=== PATIENT | male | born 1945 | race Caucasian/White ===

== ENCOUNTER → 2018-03-02 08:19 | Outpatient (CLI) | payer MEDICARE, OTHER, SELFPAY ==
--- NOTE | 2018-03-02 | DI.MRI.S_ITS ---
PROCEDURE: MR LUMBAR SPINE WO CON INDICATIONS: LUMBAR RADICULOPATHY TECHNIQUE: Noncontrast sagittal T1 spin echo and T2 fast echo, sagittal STIR, axial T1 and T2 fast spin echo through the lumbar spine. In cases with scoliosis, additional coronal T2 fast spin echo may be performed. COMPARISON: [facility], , L-SPINE WITHOUT CONTRAST, 05/01/2015, 10:04[facility], CR, SPINE LUMB 2 OR 3VW, 04/24/2015, 16:00. FINDINGS: Image quality: Excellent. Alignment and Curvature: 5 lumbar type vertebral bodies are present by plain film. There is moderate leftward curvature of the lower lumbar spine. There is loss of normal lumbar lordosis. There is mild, grade 1 retrolisthesis of L2 on L3, L3 on L4, and L4 on L5. Bone Marrow: Marrow is of normal overall signal. No acute vertebral body compression fractures. Mild reactive signal within the endplates adjacent to the L2-L3, L3-L4, and L4-L5 intervertebral discs. Spinal Cord: Conus medullaris terminates at the mid L2 level. Visualized cord demonstrates normal signal and size. Paraspinous Soft Tissues: No paravertebral masses. L1-L2: Congenital canal stenosis. Mild bilateral facet and ligamentum flavum hypertrophy. No canal stenosis. Mild bilateral foraminal stenosis. No change. L2-L3: Congenital canal stenosis. Mild disc height loss and desiccation. Mild diffuse disc bulge with superimposed broad-based right far lateral protrusion. Mild bilateral facet and ligamentum flavum hypertrophy. Mild epidural lipomatosis. Moderate canal stenosis. Mild right greater than left foraminal stenosis. No change. L3-L4: Congenital canal stenosis. Mild disc height loss. Moderate disc desiccation. Moderate diffuse disc bulge with superimposed right far lateral broad-based protrusion. Bilateral facet hypertrophy. Moderate canal stenosis. Moderate bilateral foraminal stenosis. No change. L4-L5: Congenital canal stenosis. Mild disc height loss. Moderate disc desiccation. Moderate diffuse disc bulge. Bilateral facet hypertrophy. Moderate canal stenosis. Severe right and moderate left foraminal stenosis. Flattening deformity of the right L4 nerve root within the neural foramen, new since the prior examination. L5-S1: Congenital canal stenosis. Mild disc height loss and desiccation. Mild diffuse disc bulge with superimposed left paracentral protrusion. Moderate bilateral facet hypertrophy. Mild canal stenosis. Moderate left and mild right foraminal stenosis. No change. IMPRESSION: 1. Diffuse congenital canal stenosis, with superimposed disc and facet disease, as well as ligamentum flavum hypertrophy and epidural lipomatosis. 2. Multilevel moderate canal stenoses at L2-L5. 3. Multilevel foraminal stenoses, worst at L4-L5 on the right, where there is new right L4 nerve root flattening; recommend correlation with clinical symptoms to ascertain relevance of this finding. Dictated by: Maddy Peraza M.D. on 03/02/2018 at 9:53 Approved by: Maddy Peraza M.D. on 03/02/2018 at 9:59
== END ==
PROVIDERS: Family Provider Physician Assistant Medical; PCP Physician Assistant Medical; Visit Provider Physician Assistant
DX: M51.16 Intervertebral disc disorders with radiculopathy, lumbar region (principal); M51.17 Intervertebral disc disorders with radiculopathy, lumbosacral region; M48.061 Spinal stenosis, lumbar region without neurogenic claudication; M48.07 Spinal stenosis, lumbosacral region; E88.2 Lipomatosis, not elsewhere classified
CPT/HCPCS: 72148

== ENCOUNTER 2018-11-20 13:37 | Emergency (ER) | payer OTHER, SELFPAY ==
[2018-11-20 13:48] VITALS: BP 197/79; PULSE 51; RESP 18; TEMP 36.2; O2SAT 96; BMI 32.3
--- NOTE | 2018-11-20 14:14 | DI.CT.S_ITS ---
PROCEDURE: CT HEAD/BRAIN WO CON INDICATIONS: fall TECHNIQUE: Noncontrast 4.5 mm thick angled axial sections acquired from the foramen magnum to the vertex, with coronal and sagittal reformats. For radiation dose reduction, the following was used: automated exposure control, adjustment of mA and/or kV according to patient size. COMPARISON: None. FINDINGS: Image quality: Excellent. CSF spaces: Basal cisterns are patent. No extra-axial fluid collections. The ventricles are symmetric in size and shape. Brain: No intracranial bleeds or masses. There is cerebral volume loss for age, with resultant ventricular and sulcal prominence. There are periventricular and deep white matter chronic small vessel ischemic changes. There is intracranial internal carotid artery and vertebral artery atherosclerosis. Skull and face: Calvarium and visualized facial bones appear intact, without suspicious lesions. Right periorbital facial soft tissue hematoma. Sinuses: Visualized sinuses and mastoids are clear. IMPRESSION: No acute intracranial disease process. Dictated by: Teresita Interiano MD, PhD on 11/20/2018 at 15:05 Approved by: Teresita Interiano MD, PhD on 11/20/2018 at 15:07
--- NOTE | 2018-11-20 14:15 | DI.RAD.S_ITS ---
PROCEDURE: XR HAND RT MIN 3V INDICATIONS: hand injury TECHNIQUE: 3 views of the hand(s) acquired. COMPARISON: None. FINDINGS: Bones: No fractures or dislocations. Carpal bones are normally aligned. No suspicious bony lesions. Soft tissues: No suspicious soft tissue calcifications. Atherosclerotic calcifications. IMPRESSION: No fracture. No osseous lesion. If symptoms and/or clinical suspicion for pathology persists, further assessment with repeat radiographs (7-10 days) or advanced imaging (e.g. CT, MRI or bone scan) may be helpful. Dictated by: Teresita Interiano MD, PhD on 11/20/2018 at 15:31 Approved by: Teresita Interiano MD, PhD on 11/20/2018 at 15:32
--- NOTE | 2018-11-20 14:49 | DI.CT.S_ITS ---
PROCEDURE: CT CERVICAL SPINE WO CON INDICATIONS: fall TECHNIQUE: Noncontrast 3 mm thick sections acquired from the skull base to the T4 level. Sagittal and coronal reformats were then constructed. For radiation dose reduction, the following was used: automated exposure control, adjustment of mA and/or kV according to patient size. COMPARISON: None. FINDINGS: Image quality: Excellent. Bones: No fractures or dislocations. Visualized superior ribs are intact. Spine degenerative disc disease and facet arthropathy. Soft tissues: Prevertebral soft tissues are normal in thickness. No paravertebral hematomas. No apical pneumothoraces. 4 mm calcified right upper lobe granuloma IMPRESSION: No fracture. No acute osseous lesion. If symptoms and/or clinical suspicion for pathology persists, evaluation with MRI may be helpful for further assessment. Dictated by: Teresita Interiano MD, PhD on 11/20/2018 at 15:08 Approved by: Teresita Interiano MD, PhD on 11/20/2018 at 15:14
[2018-11-20 15:46] VITALS: BP 190/64; PULSE 63; RESP 16; O2SAT 100
[2018-11-20 16:30] VITALS: BP 155/50; PULSE 43; RESP 16; O2SAT 99
[2018-11-20 17:00] VITALS: BP 156/50; PULSE 41; RESP 15; O2SAT 98
[2018-11-20 17:17] VITALS: BP 156/50; PULSE 43; RESP 14; O2SAT 96
--- NOTE | 2018-11-20 19:41 | ED.HEATRA ---
HPI - Head Injury <SHYAM Barrera - Last Filed: 11/20/18 20:55> General Chief complaint: Head Injury Stated complaint: fell at work Time Seen by Provider: 11/20/18 15:06 Source: patient Mode of arrival: ambulatory Limitations: no limitations History of Present Illness HPI Narrative: The patient is a 73-year-old male marijuana smoker who presents after a ground level trip and fall. He states he does not take blood thinners, but is on a aspirin a day. He also is diabetic. He states he tripped at work, landing with his face on the ground. He complains of bruising and ecchymosis around his right eye. He denies any loss of consciousness.. He states his tetanus was done in the past 3 years. He denies any numbness, tingling, weakness, dizziness, lightheadedness nausea vomiting. He is adamant that he tripped and fell, did not get lightheaded and fall. Related Data Home Medications Medication Instructions Recorded Confirmed amlodipine 5 mg PO DAILY 11/20/18 11/20/18 chlorthalidone 25 mg PO DAILY 11/20/18 11/20/18 insulin aspart U-100 [Novolog 1 dose SUBCUT TIDWM 11/20/18 11/20/18 Flexpen U-100 Insulin] insulin glargine [Basaglar KwikPen 50 units SUBCUT BEDTIME 11/20/18 11/20/18 U-100 Insulin] ipratropium bromide 2 spray INTRANASAL BID-QID 11/20/18 11/20/18 losartan 50 mg PO BID 11/20/18 11/20/18 metoprolol tartrate 50 mg PO BID 11/20/18 11/20/18 spironolactone 25 mg PO DAILY 11/20/18 11/20/18 Allergies Allergy/AdvReac Type Severity Reaction Status Date / Time Penicillins [PENICILLINS] Allergy Intermediate HIVES/RASH Unverified 07/13/17 12:35 Review of Systems <SYHAM Barrera - Last Filed: 11/20/18 20:55> Review of Systems GENERAL: Denies chills, fatigue, malaise, fever, sweats. HEENT: Denies sinus pain, ear pain, sore throat, difficulty swallowing, dizziness. RESPIRATORY: Denies dyspnea, cough, wheezing, hemoptysis, sputum. CARDIOVASCULAR: Denies chest pain, palpitations, orthopnea, edema, GASTROINTESTINAL: Denies nausea, vomiting, abdominal pain, diarrhea, constipation, melena. : Denies dysuria, frequency, incontinence, hematuria, urinary retention. MUSCULOSKELETAL: See HPI SKIN: See HPI NEUROLOGIC: Denies weakness, headache, numbness, change in speech, confusion, seizures, incoordination. PSYCHIATRIC: No concerning psychosocial issues. 12 point review of systems is negative except for those stated above PFSH <SHYAM Barrera - Last Filed: 11/20/18 20:55> Surgical History Status post knee surgery Status post knee surgery Status post laminectomy Social History Smoking Status: Never smoker Social History Smoking Status: Never smoker Exam <SHYAM Barrera - Last Filed: 11/20/18 20:55> Narrative Exam Narrative: GENERAL: This is a well-nourished, well-developed patient, no acute distress HEAD: Atraumatic. Normocephalic. No temporal or scalp tenderness. No pain to palpation of facial bones. EYES: Pupils equal round and reactive. Extraocular motions intact. No scleral icterus. No injection or drainage.. Periorbital ecchymosis is noted on skin exam. ENT: Nose without bleeding, purulent drainage or septal hematoma. Throat without erythema, tonsillar hypertrophy or exudate. Uvula midline. Airway patent. NECK: Trachea midline. No JVD or lymphadenopathy. Supple, nontender, no meningeal signs. CARDIOVASCULAR: Regular rate and rhythm RESPIRATORY: Clear to auscultation. Breath sounds equal bilaterally. No wheezes, rales, or rhonchi. No cough. No increased respiratory effort. No accessory muscle use. GASTROINTESTINAL: Abdomen soft, non-tender, nondistended. No hepato-splenomegaly, or palpable masses. No guarding. EXTREMITIES: Diffuse pain to palpation of right hand. Negative right wrist pain to palpation. Full range of motion noted right wrist. No snuffbox tenderness. Positive radial pulse right hand. Capillary refill less than 2 seconds. BACK: Diffuse pain to C-spine palpation. No pain to spinal palpation of T and L-spine. NEURO: AOx3. Strength is equal upper and lower extremities bilaterally. SKIN: Right eye periorbital ecchymosis. Small abrasion noted lateral to her right eye. Abrasion noted on lateral aspect of right hand. Initial Vital Signs Initial Vital Signs: Vital Signs Temperature 97.1 F L 11/20/18 13:48 Pulse Rate 51 L 11/20/18 13:48 Respiratory Rate 18 11/20/18 13:48 Blood Pressure 197/79 H 11/20/18 13:48 Pulse Oximetry 96 11/20/18 13:48 <Cathy Donaldson DO - Last Filed: 11/21/18 07:16> Initial Vital Signs Initial Vital Signs: Vital Signs Temperature 97.1 F L 11/20/18 13:48 Pulse Rate 51 L 11/20/18 13:48 Respiratory Rate 18 11/20/18 13:48 Blood Pressure 197/79 H 11/20/18 13:48 Pulse Oximetry 96 11/20/18 13:48 Scores <SHYAM Barrera - Last Filed: 11/20/18 20:55> GCS [place] coma scale eye opening: Spontaneous Mini coma scale verbal response: Orientated Mini coma scale motor response: Obey commands Mini coma scale total score: 15 Course <SHYAM Barrera - Last Filed: 11/20/18 20:55> Orders Ordered: ED Orders 11/20/18 14:14 CT head/brain wo con Stat 11/20/18 14:15 XR hand RT min 3V Stat 11/20/18 14:49 CT cervical spine wo con Stat Vital Signs - 8 hr 11/20/18 13:48 11/20/18 15:46 11/20/18 16:30 Temperature 97.1 F L Pulse Rate 51 L 63 43 L Respiratory Rate 18 16 16 Blood Pressure 197/79 H Blood Pressure [Left Arm] 190/64 H 155/50 H Pulse Oximetry 96 100 99 11/20/18 17:00 11/20/18 17:17 Temperature Pulse Rate 41 L 43 L Respiratory Rate 15 14 Blood Pressure 156/50 H Blood Pressure [Left Arm] 156/50 H Pulse Oximetry 98 96 <DO Sumi Canela Last Filed: 11/21/18 07:16> Orders Ordered: ED Orders 11/20/18 14:14 CT head/brain wo con Stat 11/20/18 14:15 XR hand RT min 3V Stat 11/20/18 14:49 CT cervical spine wo con Stat Vital Signs - 8 hr 11/20/18 13:48 11/20/18 15:46 11/20/18 16:30 Temperature 97.1 F L Pulse Rate 51 L 63 43 L Respiratory Rate 18 16 16 Blood Pressure 197/79 H Blood Pressure [Left Arm] 190/64 H 155/50 H Pulse Oximetry 96 100 99 11/20/18 17:00 11/20/18 17:17 Temperature Pulse Rate 41 L 43 L Respiratory Rate 15 14 Blood Pressure 156/50 H Blood Pressure [Left Arm] 156/50 H Pulse Oximetry 98 96 MDM - Head Injury <SABRINA Barrera- - Last Filed: 11/20/18 20:55> Imaging Data C-spine CT: Radiologist's impression: [address] [address] [address] Scan Report Signed Patient: Homer Howell [facility]R#: [id number] : 8Acct:[id number] Age/Sex: 73 / MDate of Service: 11/20/18 Loc: ED Accession Number: [id number] Procedure: CT cervical spine wo con Ordering Provider: Cathy Donaldson D.O. PROCEDURE: CT CERVICAL SPINE WO CON INDICATIONS: fall TECHNIQUE: Noncontrast 3 mm thick sections acquired from the skull base to the T4 level. Sagittal and coronal reformats were then constructed. For radiation dose reduction, the following was used: automated exposure control, adjustment of mA and/or kV according to patient size. COMPARISON: None. FINDINGS: Image quality: Excellent. Bones: No fractures or dislocations. Visualized superior ribs are intact. Spine degenerative disc disease and facet arthropathy. Soft tissues: Prevertebral soft tissues are normal in thickness. No paravertebral hematomas. No apical pneumothoraces. 4 mm calcified right upper lobe granuloma IMPRESSION: No fracture. No acute osseous lesion. If symptoms and/or clinical suspicion for pathology persists, evaluation with MRI may be helpful for further assessment. Dictated by: Teresita Interiano MD, PhD on 11/20/2018 at 15:08 Approved by: Teresita Interiano MD, PhD on 11/20/2018 at 15:14 Hand x-ray: Radiologist's impression: Homer Howell 73 M [address] [address] XRay Report Signed Patient: Homer Howell AMR#: [id number] : 8Acct:[id number] Age/Sex: 73 / MDate of Service: 11/20/18 Loc: ED Accession Number: [id number] Procedure: XR hand RT min 3V Ordering Provider: Cathy oDnaldson D.O. PROCEDURE: XR HAND RT MIN 3V INDICATIONS: hand injury TECHNIQUE: 3 views of the hand(s) acquired. COMPARISON: None. FINDINGS: Bones: No fractures or dislocations. Carpal bones are normally aligned. No suspicious bony lesions. Soft tissues: No suspicious soft tissue calcifications. Atherosclerotic calcifications. IMPRESSION: No fracture. No osseous lesion. If symptoms and/or clinical suspicion for pathology persists, further assessment with repeat radiographs (7-10 days) or advanced imaging (e.g. CT, MRI or bone scan) may be helpful. Dictated by: Teresita Interiano MD, PhD on 11/20/2018 at 15:31 Approved by: Teresita Interiano MD, PhD on 11/20/2018 at 15:[address]: Radiologist's impression: Homer Howell 73 M [address] [address] [address] Scan Report Signed Patient: Homer Howell [facility]R#: [id number] [id number] Age/Sex: 73 / MDate of Service: 11/20/18 Loc: ED Accession Number: [id number] Procedure: CT head/brain wo con Ordering Provider: Cathy Donaldson D.O. PROCEDURE: CT HEAD/BRAIN WO CON INDICATIONS: fall TECHNIQUE: Noncontrast 4.5 mm thick angled axial sections acquired from the foramen magnum to the vertex, with coronal and sagittal reformats. For radiation dose reduction, the following was used: automated exposure control, adjustment of mA and/or kV according to patient size. COMPARISON: None. FINDINGS: Image quality: Excellent. CSF spaces: Basal cisterns are patent. No extra-axial fluid collections. The ventricles are symmetric in size and shape. Brain: No intracranial bleeds or masses. There is cerebral volume loss for age, with resultant ventricular and sulcal prominence. There are periventricular and deep white matter chronic small vessel ischemic changes. There is intracranial internal carotid artery and vertebral artery atherosclerosis. Skull and face: Calvarium and visualized facial bones appear intact, without suspicious lesions. Right periorbital facial soft tissue hematoma. Sinuses: Visualized sinuses and mastoids are clear. IMPRESSION: No acute intracranial disease process. Dictated by: Teresita Interiano MD, PhD on 11/20/2018 at 15:05 Approved by: Teresita Interiano MD, PhD on 11/20/2018 at 15:07 [facility] Narrative Medical decision making narrative: The patient is a 73-year-old male who presents after ground level fall. He is not on blood thinners. The patient was placed in a C-collar by nursing and CTs of his head and neck were obtained. There were negative. His hand x-ray is also has no acute findings. His tetanus is up-to-date. His visual acuity is stable. He denies any lightheadedness, dizziness, visual deficit or any acute concerns. He has no symptoms of a concussion. He requests to go home. I discussed at length follow up with his PCP. Encourage come back to the ER for any acute concerns such as incontinence of bowel, incontinence of bladder saddle anesthesia. Discussed coming back to the ER for any confusion, chest pain, shortness of breath etc. Patient has no questions or concerns upon discharge and states understand give all follow-up and return precautions. Discharge Plan Departure Patient Disposition: Home Clinical Impression: Fall from ground level, Abrasion Periorbital ecchymosis of right eye Qualifiers: Encounter type: initial encounter Qualified Code(s): S00.11XA - Contusion of right eyelid and periocular area, initial encounter Neck strain Qualifiers: Encounter type: initial encounter Qualified Code(s): S16.1XXA - Strain of muscle, fascia and tendon at neck level, initial encounter Discharge Date/Time: 11/20/18 17:18 Interventions: ED Discharge Assessment Last Done: 11/20/18 17:17 Instructions: DI for Concussion, How to Prevent Falls, DI for Neck Sprain, DI for Abrasion, DI for Neck Pain, DI for Hand Pain Activity Restrictions/Additional Instructions: Today we did imaging of her hand, head and neck. Everything came back normal. You will have a black eye from her fall and have an overlying abrasion. Please monitor for signs and symptoms of infection. This includes redness pus and discharge. Please come back to the emergency department for any acute concerns such as confusion, with new onset incontinence or numbness in your groin, no visual difficulties. Please follow up with primary care provider. Prescriptions: No Action losartan 50 mg tablet 50 mg PO BID RF: 0 chlorthalidone 25 mg tablet 25 mg PO DAILY RF: 0 amlodipine 5 mg tablet 5 mg PO DAILY RF: 0 spironolactone 25 mg tablet 25 mg PO DAILY RF: 0 metoprolol tartrate 50 mg tablet 50 mg PO BID RF: 0 ipratropium bromide 0.03 % spray,non-aerosol 2 spray intranasal BID-QID RF: 0 Novolog Flexpen U-100 Insulin 100 unit/mL (3 mL) insulin pen 1 dose subcut TIDWM RF: 0 Basaglar KwikPen U-100 Insulin 100 unit/mL (3 mL) insulin pen 50 units subcut BEDTIME RF: 0 Referrals: Adrienne Garcia PA-C [Primary Care Provider] - <Cathy Donaldson DO - Last Filed: 11/21/18 07:16> Cosign ED Attending Nikkiature Attestation: I was immediately available in the department for consultation. Documentation has been reviewed. I agree with assessment and plan.
--- NOTE | 2018-11-20 20:55 | ED_ITS ---
HPI - Head Injury <SHYAM Barrera - Last Filed: 11/20/18 20:55> General Chief complaint: Head Injury Stated complaint: fell at work Time Seen by Provider: 11/20/18 15:06 Source: patient Mode of arrival: ambulatory Limitations: no limitations History of Present Illness HPI Narrative: The patient is a 73-year-old male marijuana smoker who presents after a ground level trip and fall. He states he does not take blood thinners, but is on a aspirin a day. He also is diabetic. He states he tripped at work, landing with his face on the ground. He complains of bruising and ecchymosis around his right eye. He denies any loss of consciousness.. He states his tetanus was done in the past 3 years. He denies any numbness, tingling, weakness, dizziness, lightheadedness nausea vomiting. He is adamant that he tripped and fell, did not get lightheaded and fall. Related Data Home Medications Medication Instructions Recorded Confirmed amlodipine 5 mg PO DAILY 11/20/18 11/20/18 chlorthalidone 25 mg PO DAILY 11/20/18 11/20/18 insulin aspart U-100 [Novolog 1 dose SUBCUT TIDWM 11/20/18 11/20/18 Flexpen U-100 Insulin] insulin glargine [Basaglar KwikPen 50 units SUBCUT BEDTIME 11/20/18 11/20/18 U-100 Insulin] ipratropium bromide 2 spray INTRANASAL BID-QID 11/20/18 11/20/18 losartan 50 mg PO BID 11/20/18 11/20/18 metoprolol tartrate 50 mg PO BID 11/20/18 11/20/18 spironolactone 25 mg PO DAILY 11/20/18 11/20/18 Allergies Allergy/AdvReac Type Severity Reaction Status Date / Time Penicillins [PENICILLINS] Allergy Intermediate HIVES/RASH Unverified 07/13/17 12:35 Review of Systems <SHYAM Barrera - Last Filed: 11/20/18 20:55> Review of Systems GENERAL: Denies chills, fatigue, malaise, fever, sweats. HEENT: Denies sinus pain, ear pain, sore throat, difficulty swallowing, dizziness. RESPIRATORY: Denies dyspnea, cough, wheezing, hemoptysis, sputum. CARDIOVASCULAR: Denies chest pain, palpitations, orthopnea, edema, GASTROINTESTINAL: Denies nausea, vomiting, abdominal pain, diarrhea, constipation, melena. : Denies dysuria, frequency, incontinence, hematuria, urinary retention. MUSCULOSKELETAL: See HPI SKIN: See HPI NEUROLOGIC: Denies weakness, headache, numbness, change in speech, confusion, seizures, incoordination. PSYCHIATRIC: No concerning psychosocial issues. 12 point review of systems is negative except for those stated above PFSH <SHYAM Barrera - Last Filed: 11/20/18 20:55> Surgical History Status post knee surgery Status post knee surgery Status post laminectomy Social History Smoking Status: Never smoker Social History Smoking Status: Never smoker Exam <SHYAM Barrera - Last Filed: 11/20/18 20:55> Narrative Exam Narrative: GENERAL: This is a well-nourished, well-developed patient, no acute distress HEAD: Atraumatic. Normocephalic. No temporal or scalp tenderness. No pain to palpation of facial bones. EYES: Pupils equal round and reactive. Extraocular motions intact. No scleral icterus. No injection or drainage.. Periorbital ecchymosis is noted on skin exam. ENT: Nose without bleeding, purulent drainage or septal hematoma. Throat without erythema, tonsillar hypertrophy or exudate. Uvula midline. Airway patent. NECK: Trachea midline. No JVD or lymphadenopathy. Supple, nontender, no meningeal signs. CARDIOVASCULAR: Regular rate and rhythm RESPIRATORY: Clear to auscultation. Breath sounds equal bilaterally. No wheezes, rales, or rhonchi. No cough. No increased respiratory effort. No accessory muscle use. GASTROINTESTINAL: Abdomen soft, non-tender, nondistended. No hepato- splenomegaly, or palpable masses. No guarding. EXTREMITIES: Diffuse pain to palpation of right hand. Negative right wrist pain to palpation. Full range of motion noted right wrist. No snuffbox tenderness. Positive radial pulse right hand. Capillary refill less than 2 seconds. BACK: Diffuse pain to C-spine palpation. No pain to spinal palpation of T and L-spine. NEURO: AOx3. Strength is equal upper and lower extremities bilaterally. SKIN: Right eye periorbital ecchymosis. Small abrasion noted lateral to her right eye. Abrasion noted on lateral aspect of right hand. Initial Vital Signs Initial Vital Signs: Vital Signs Temperature 97.1 F L 11/20/18 13:48 Pulse Rate 51 L 11/20/18 13:48 Respiratory Rate 18 11/20/18 13:48 Blood Pressure 197/79 H 11/20/18 13:48 Pulse Oximetry 96 11/20/18 13:48 <Cathy Donaldson DO - Last Filed: 11/21/18 07:16> Initial Vital Signs Initial Vital Signs: Vital Signs Temperature 97.1 F L 11/20/18 13:48 Pulse Rate 51 L 11/20/18 13:48 Respiratory Rate 18 11/20/18 13:48 Blood Pressure 197/79 H 11/20/18 13:48 Pulse Oximetry 96 11/20/18 13:48 Scores <SHYAM Barrera - Last Filed: 11/20/18 20:55> GCS Mini coma scale eye opening: Spontaneous [place] coma scale verbal response: Orientated Mini coma scale motor response: Obey commands [place] coma scale total score: 15 Course <SHYAM Barrera - Last Filed: 11/20/18 20:55> Orders Ordered: ED Orders 11/20/18 14:14 CT head/brain wo con Stat 11/20/18 14:15 XR hand RT min 3V Stat 11/20/18 14:49 CT cervical spine wo con Stat Vital Signs - 8 hr 11/20/18 13:48 11/20/18 15:46 11/20/18 16:30 Temperature 97.1 F L Pulse Rate 51 L 63 43 L Respiratory Rate 18 16 16 Blood Pressure 197/79 H Blood Pressure [Left Arm] 190/64 H 155/50 H Pulse Oximetry 96 100 99 11/20/18 17:00 11/20/18 17:17 Temperature Pulse Rate 41 L 43 L Respiratory Rate 15 14 Blood Pressure 156/50 H Blood Pressure [Left Arm] 156/50 H Pulse Oximetry 98 96 <DO Sumi Canela Last Filed: 11/21/18 07:16> Orders Ordered: ED Orders 11/20/18 14:14 CT head/brain wo con Stat 11/20/18 14:15 XR hand RT min 3V Stat 11/20/18 14:49 CT cervical spine wo con Stat Vital Signs - 8 hr 11/20/18 13:48 11/20/18 15:46 11/20/18 16:30 Temperature 97.1 F L Pulse Rate 51 L 63 43 L Respiratory Rate 18 16 16 Blood Pressure 197/79 H Blood Pressure [Left Arm] 190/64 H 155/50 H Pulse Oximetry 96 100 99 11/20/18 17:00 11/20/18 17:17 Temperature Pulse Rate 41 L 43 L Respiratory Rate 15 14 Blood Pressure 156/50 H Blood Pressure [Left Arm] 156/50 H Pulse Oximetry 98 96 MDM - Head Injury <SABRINA Barrera- - Last Filed: 11/20/18 20:55> Imaging Data C-spine CT: Radiologist's impression: [address] [address] [address] Scan Report Signed Patient: Homer Howell [facility]#: [id number] : 8Acct:[id number] Age/Sex: 73 / MDate of Service: 11/20/18 Loc: ED Accession Number: [id number] Procedure: CT cervical spine wo con Ordering Provider: Cathy Donaldson D.O. PROCEDURE: CT CERVICAL SPINE WO CON INDICATIONS: fall TECHNIQUE: Noncontrast 3 mm thick sections acquired from the skull base to the T4 level. Sagittal and coronal reformats were then constructed. For radiation dose reduction, the following was used: automated exposure control, adjustment of mA and/or kV according to patient size. COMPARISON: None. FINDINGS: Image quality: Excellent. Bones: No fractures or dislocations. Visualized superior ribs are intact. Spine degenerative disc disease and facet arthropathy. Soft tissues: Prevertebral soft tissues are normal in thickness. No paravertebral hematomas. No apical pneumothoraces. 4 mm calcified right upper lobe granuloma IMPRESSION: No fracture. No acute osseous lesion. If symptoms and/or clinical suspicion for pathology persists, evaluation with MRI may be helpful for further assessment. Dictated by: Teresita Interiano MD, PhD on 11/20/2018 at 15:08 Approved by: Teresita Interiano MD, PhD on 11/20/2018 at 15:14 Hand x-ray: Radiologist's impression: Homer Howell 73 M [address] [address] XRay Report Signed Patient: Homer Howell AMR#: [id number] : 8Acct:[id number] Age/Sex: 73 / MDate of Service: 11/20/18 Loc: ED Accession Number: [id number] Procedure: XR hand RT min 3V Ordering Provider: Cathy Donaldson D.O. PROCEDURE: XR HAND RT MIN 3V INDICATIONS: hand injury TECHNIQUE: 3 views of the hand(s) acquired. COMPARISON: None. FINDINGS: Bones: No fractures or dislocations. Carpal bones are normally aligned. No suspicious bony lesions. Soft tissues: No suspicious soft tissue calcifications. Atherosclerotic calcifications. IMPRESSION: No fracture. No osseous lesion. If symptoms and/or clinical suspicion for pathology persists, further assessment with repeat radiographs (7-10 days) or advanced imaging (e.g. CT, MRI or bone scan) may be helpful. Dictated by: Teresita Interiano MD, PhD on 11/20/2018 at 15:31 Approved by: Teresita Interiano MD, PhD on 11/20/2018 at 15:[address]: Radiologist's impression: Homer Howell 73 M [address] [address] [address] Scan Report Signed Patient: Homer Howell [facility]#: [id number] : [id number] Age/Sex: 73 / MDate of Service: 11/20/18 Loc: ED Accession Number: [id number] Procedure: CT head/brain wo con Ordering Provider: Cathy Donaldson D.O. PROCEDURE: CT HEAD/BRAIN WO CON INDICATIONS: fall TECHNIQUE: Noncontrast 4.5 mm thick angled axial sections acquired from the foramen magnum to the vertex, with coronal and sagittal reformats. For radiation dose reduction, the following was used: automated exposure control, adjustment of mA and/or kV according to patient size. COMPARISON: None. FINDINGS: Image quality: Excellent. CSF spaces: Basal cisterns are patent. No extra-axial fluid collections. The ventricles are symmetric in size and shape. Brain: No intracranial bleeds or masses. There is cerebral volume loss for age, with resultant ventricular and sulcal prominence. There are periventricular and deep white matter chronic small vessel ischemic changes. There is intracranial internal carotid artery and vertebral artery atherosclerosis. Skull and face: Calvarium and visualized facial bones appear intact, without suspicious lesions. Right periorbital facial soft tissue hematoma. Sinuses: Visualized sinuses and mastoids are clear. IMPRESSION: No acute intracranial disease process. Dictated by: Teresita Interiano MD, PhD on 11/20/2018 at 15:05 Approved by: Teresita Interiano MD, PhD on 11/20/2018 at 15:07 [facility] Narrative Medical decision making narrative: The patient is a 73-year-old male who presents after ground level fall. He is not on blood thinners. The patient was placed in a C-collar by nursing and CTs of his head and neck were obtained. There were negative. His hand x-ray is also has no acute findings. His tetanus is up-to-date. His visual acuity is stable. He denies any lightheadedness, dizziness, visual deficit or any acute concerns. He has no symptoms of a concussion. He requests to go home. I discussed at length follow up with his PCP. Encourage come back to the ER for any acute concerns such as incontinence of bowel, incontinence of bladder saddle anesthesia. Discussed coming back to the ER for any confusion, chest pain, shortness of breath etc. Patient has no questions or concerns upon discharge and states understand give all follow-up and return precautions. Discharge Plan Departure Patient Disposition: Home Clinical Impression: Fall from ground level, Abrasion Periorbital ecchymosis of right eye Qualifiers: Encounter type: initial encounter Qualified Code(s): S00.11XA - Contusion of right eyelid and periocular area, initial encounter Neck strain Qualifiers: Encounter type: initial encounter Qualified Code(s): S16.1XXA - Strain of muscle, fascia and tendon at neck level, initial encounter Discharge Date/Time: 11/20/18 17:18 Interventions: ED Discharge Assessment Last Done: 11/20/18 17:17 Instructions: DI for Concussion, How to Prevent Falls, DI for Neck Sprain, DI for Abrasion, DI for Neck Pain, DI for Hand Pain Activity Restrictions/Additional Instructions: Today we did imaging of her hand, head and neck. Everything came back normal. You will have a black eye from her fall and have an overlying abrasion. Please monitor for signs and symptoms of infection. This includes redness pus and discharge. Please come back to the emergency department for any acute concerns such as confusion, with new onset incontinence or numbness in your groin, no visual difficulties. Please follow up with primary care provider. Prescriptions: No Action losartan 50 mg tablet 50 mg PO BID RF: 0 chlorthalidone 25 mg tablet 25 mg PO DAILY RF: 0 amlodipine 5 mg tablet 5 mg PO DAILY RF: 0 spironolactone 25 mg tablet 25 mg PO DAILY RF: 0 metoprolol tartrate 50 mg tablet 50 mg PO BID RF: 0 ipratropium bromide 0.03 % spray,non-aerosol 2 spray intranasal BID-QID RF: 0 Novolog Flexpen U-100 Insulin 100 unit/mL (3 mL) insulin pen 1 dose subcut TIDWM RF: 0 Basaglar KwikPen U-100 Insulin 100 unit/mL (3 mL) insulin pen 50 units subcut BEDTIME RF: 0 Referrals: Adrienne Garcia PA-C [Primary Care Provider] - <Cathy Donaldson DO - Last Filed: 11/21/18 07:16> Cosign ED Attending Nikkiature Attestation: I was immediately available in the department for consultation. Documentation has been reviewed. I agree with assessment and plan.
== END 2018-11-20 17:18 | disposition home or self-care (01) ==
PROVIDERS: Emergency Provider Nurse Practitioner Family; PCP Physician Assistant Medical
DX: S00.11XA Contusion of right eyelid and periocular area, initial encounter (principal); S16.1XXA Strain of muscle, fascia and tendon at neck level, initial encounter; W19.XXXA Unspecified fall, initial encounter; Y99.0 Civilian activity done for income or pay
CPT/HCPCS: 70450; 72125; 73130; 99283; 99284

== ENCOUNTER → 2021-03-10 11:45 | Outpatient (CLI) | payer MEDICARE, OTHER, SELFPAY | PROVIDERS: PCP Physician Assistant Medical; Referring Provider Physician Assistant; Visit Provider Physician Assistant | DX: I25.118 Atherosclerotic heart disease of native coronary artery with other forms of angina pectoris (principal); N18.30 Chronic kidney disease, stage 3 unspecified | CPT/HCPCS: 36415; 80048 ==